=== PATIENT | male | born 1945 | race American Indian/Alaskan Native ===

== ENCOUNTER 2018-04-23 06:35 | Day surgery (SDC) | payer MEDICARE ==
[2018-04-23 07:32] LABS: INR 1.03 (0.87-1.13)
[2018-04-23 07:33] LABS: Partial Thromboplastin Time 24.7 Sec. (24.2-36.6)
[2018-04-23 07:41] LABS: BUN/Creatinine Ratio 13; Blood Urea Nitrogen 12 mg/dL (9-20); Hemolysis Index 20
[2018-04-23] MEDS ORDERED: NACL 0.9% 1000 ML 1,000 ML IV SCH (08:00)
[2018-04-23 08:07] LABS: Hematocrit 42.4 % (35.5-45.6); Hemoglobin 14.4 gm/dl (11.8-15.2); Mean Corpuscular HGB Conc 34 % (32-34); Mean Corpuscular Volume 103 fl (84-94); Platelet Count 183 K/mm3 (140-440); Red Blood Count 4.12 M/mm3 (3.65-5.03)
--- NOTE | 2018-04-23 08:36 | Anesthesia Day of Surgery ---
Anesthesia Day of Surgery - Day of Surgery Patient Examined: Yes Patient H&P Reviewed: Yes Patient is NPO: Yes Beta Blockers: No Cardiac Clearance: No Pulmonary Clearance: No
--- NOTE | 2018-04-23 08:37 | Anesthesia Consultation ---
Anesthesia Consult and Med Hx Date of service: 04/23/18 - Airway Anesthetic Teeth Evaluation: Good ROM Head & Neck: Adequate Mental/Hyoid Distance: Adequate Mallampati Class: Class III Intubation Access Assessment: Probably Good - Pulmonary Exam CTA: Yes - Cardiac Exam Cardiac Exam: No Murmur - Pre-Operative Health Status ASA Pre-Surgery Classification: ASA2 Proposed Anesthetic Plan: MAC - Pulmonary Hx Smoking: No - Cardiovascular System Hx Cardia Arrhythmia: Yes - Other Systems Hx Cancer: No
[2018-04-23] MEDS ORDERED: VERSED ONE (08:46)
[2018-04-23] MEDS ORDERED: DIPRIVAN 10 MG/ML IV ONE (08:46)
[2018-04-23 09:23] LABS: Anisocytosis 1+; Basophils % (Manual) 0 % (0.0-1.8); Eosinophils % (Manual) 0 % (0.0-4.3); Macrocytosis 1+; Total Cells Counted 100
[2018-04-23 09:24] LABS: Giant Platelets Rare; Platelet Estimate Consistent w Auto
--- NOTE | 2018-04-23 10:19 | Post Anesthesia Evaluation ---
- Post Anesthesia Evaluation Patient Participated: Yes Airway Patent: Yes Stable Respiratory Function: Yes Nausea/Vomiting: No Temp > 96.8F: Yes Pain Manageable: Yes Adequeate Hydration: Yes Anesthesia Complications: No
[2018-04-23 11:02] VITALS: BP 116/79
--- NOTE | 2018-04-23 11:07 | Physician Progress Note ---
REFERRING PHYSICIAN: Raoul Jean MD PROCEDURE: Elective electrical cardioversion of atrial fibrillation. INDICATIONS FOR PROCEDURE: The patient is a pleasant 72-year-old -[place] gentleman with history of atrial fibrillation with controlled ventricular response, on systemic anticoagulation without interruption for greater than 2 months, referred here for elective cardioversion. Risks, benefits, alternatives discussed. PROCEDURE IN DETAIL: The patient was brought to the laborer beam house in a postabsorptive state. Anesthesia at bedside throughout, as well as RN. Once adequate sedation was obtained, one direct current shock biphasic 200 joules was performed, successful cardioversion to sinus rhythm. There were no complications. The patient tolerated the procedure well. CONCLUSIONS: Successful cardioversion of atrial fibrillation with resumption of sinus rhythm. No complications. We will monitor the patient for 2 hours prior to discharge. Results of procedure explained to the patient and family. All questions and concerns were addressed. JOB# [id number] [facility]
== END 2018-04-23 11:30 | disposition home or self-care (01) ==
LOC: CATHLABREC 06:35
PROVIDERS: ATTEND Internal Medicine
DX: I48.3 Typical atrial flutter (principal); K21.9 Gastro-esophageal reflux disease without esophagitis; Z79.899 Other long term (current) drug therapy; Z87.891 Personal history of nicotine dependence; Z83.511 Family history of glaucoma; Z82.49 Family history of ischemic heart disease and other diseases of the circulatory system; Z88.8 Allergy status to other drugs, medicaments and biological substances
CPT/HCPCS: 36415; 80048; 85007; 85025; 85610; 85730; 92960; 93005; 93010; J2250; J2704; J7030